=== PATIENT | female | born 1995 | race American Indian/Alaskan Native ===

== ENCOUNTER 2022-05-28 07:23 | Emergency (ER) | payer MEDICAID ==
[2022-05-28 07:37] VITALS: BP 108/69
== END 2022-05-28 14:20 | disposition left against medical advice (07) ==
LOC: ED 07:23
DX: M54.2 Cervicalgia (principal); M25.531 Pain in right wrist; Z53.21 Procedure and treatment not carried out due to patient leaving prior to being seen by health care provider; V87.7XXA Person injured in collision between other specified motor vehicles (traffic), initial encounter; Y93.89 Activity, other specified; Y92.488 Other paved roadways as the place of occurrence of the external cause; Y99.8 Other external cause status